=== PATIENT | female | born 1995 | race Caucasian/White ===

== ENCOUNTER → 2017-11-11 | Outpatient (CLI) | payer BC ==
[~2017-11-11] MED LIST: ALBU90OI INH; AZIT250 PO; CETI5 PO; DIPH25 PO; HYDACE5 PO; IBUP800 PO; NAPR500 PO; PRED20 PO; RANI150EL PO
== END | disposition home or self-care (01) ==
LOC: LAB SHORT 17:32 → LAB 17:32
DX: N39.0 Urinary tract infection, site not specified (principal)
CPT/HCPCS: 87086

== ENCOUNTER 2018-12-31 09:39 | Emergency (ER) | payer BC, SELFPAY ==
[~2018-12-31] VITALS: Ht 167.6 cm; Wt 68.0 kg
[2018-12-31] MEDS ORDERED: Atarax10 MG PO (09:56)
[2018-12-31] MEDS ORDERED: ALPR.5 PO (09:57)
[2018-12-31 10:54] LABS: Hematocrit 45.9 % (33.0-51.0); Hemoglobin 15.7 g/dL (11.5-16.0); Mean Corpuscular HGB 30.9 pg (26.0-34.0); Mean Corpuscular HGB Conc 34.2 g/dL (31.5-36.5); Mean Corpuscular Volume 90 fL (80-100); Platelet Count 225 K/mm3 (150-400); RDW Coefficient Variation 12.2 % (11.7-14.2); Red Blood Cell Count 5.08 M/mm3 (3.80-5.20); White Blood Cell Count 4.36 K/mm3 (4.00-11.30)
[2018-12-31 11:17] LABS: Alanine Aminotransfer (ALT/SGP 35 U/L (12-78); Albumin, Blood 4.7 g/dL (3.4-5.0); Albumin/Globulin Ratio 1.3 (0.8-1.8); Alk Phos 68 U/L (50-136); Anion Gap 7 mmol/L (6-16); Aspartate Aminotrans (AST/SGOT 15 U/L (12-37); Bilirubin, Total 0.5 mg/dL (0.1-1.0); Blood Urea Nitrogen 14 mg/dL (8-24); Bun/Creatinine Ratio 21.4 (12.0-20.0); CO2, Blood 24 mmol/L (21-32); Calcium, Blood 9.1 mg/dL (8.5-10.1); Chloride, Blood 110 mmol/L (98-108); Creatinine, Blood 0.66 mg/dL (0.40-1.00); Globulin, Blood 3.6 g/dL (2.2-4.0); Glomerular Filtration Rate >60 (60-); Glucose, Blood 89 mg/dL (70-99); Potassium, Blood 4.2 mmol/L (3.5-5.5); Sodium, Blood 141 mmol/L (136-145); Total Protein, Blood 8.3 g/dL (6.4-8.2); Troponin I <0.015 ng/mL (0.000-0.040)
[2018-12-31 11:20] LABS: BAND PERCENT MAN 1 % (0-8); BASOPHILS PERCENT MAN 0 % (0-2); EOSINOPHILS ABSOLUTE MAN 0.08 K/mm3 (0.00-0.68); EOSINOPHILS PERCENT MAN 2 % (0-6); LYMPHOCYTES ABSOLUTE MAN 1.35 K/mm3 (0.84-5.20); LYMPHOCYTES PERCENT MAN 31 % (21-46); MONOCYTES ABSOLUTE MAN 0.26 K/mm3 (0.16-1.47); MONOCYTES PERCENT MAN 6 % (4-13); NEUTROPHILS ABSOLUTE MAN 2.65 K/mm3 (1.96-9.15); SEG NEUTROPHILS PERCENT MAN 60 % (41-73); TOTAL CELLS COUNTED 100
== END 2018-12-31 11:58 | disposition home or self-care (01) ==
LOC: ER 09:39
PROVIDERS: Emergency Medicine
DX: R00.2 Palpitations (principal); Z79.899 Other long term (current) drug therapy
CPT/HCPCS: 36415; 71046; 80053; 84443; 84484; 85025; 93005; 93010; 99285-25

== ENCOUNTER 2019-06-26 13:39 | Emergency (ER) | payer BC, SELFPAY ==
[~2019-06-26] VITALS: Ht 167.6 cm; Wt 68.0 kg
[~2019-06-26 13:39] MED LIST changes: +ALPR.5 PO; +Atarax10 MG PO
[2019-06-26 14:56] LABS: Influenza A Negative (NEGATIVE); Influenza B Positive (NEGATIVE)
[2019-06-26] MEDS ORDERED: MEDROXYPRO IM (15:26)
[2019-06-26] MEDS ORDERED: Sudogest60 MG PO ×2 (15:37→15:39)
[2019-06-26] MEDS ORDERED: Tamiflu75 MG PO ×2 (15:37→15:39)
== END 2019-06-26 15:45 | disposition home or self-care (01) ==
LOC: ER 13:39
PROVIDERS: Physician Assistant
DX: J10.1 Influenza due to other identified influenza virus with other respiratory manifestations (principal)
CPT/HCPCS: 87804; 99283

== ENCOUNTER 2019-10-24 08:43 | Emergency (ER) | payer OTHER ==
[~2019-10-24] VITALS: Ht 167.6 cm; Wt 65.8 kg
[~2019-10-24 08:43] MED LIST changes: +MEDROXYPRO IM; +Sudogest60 MG PO; +Tamiflu75 MG PO
[2019-10-24 10:01] LABS: BASOPHILS ABSOLUTE AUTO 0.02 K/mm3 (0.00-0.23); BASOPHILS PERCENT AUTO 1 % (0-2); EOSINOPHILS ABSOLUTE AUTO 0.12 K/mm3 (0.00-0.68); EOSINOPHILS PERCENT AUTO 3 % (0-6); Hematocrit 43.5 % (33.0-51.0); Hemoglobin 14.5 g/dL (11.5-16.0); IMMATURE GRAN ABSOLUTE AUTO 0.01 K/mm3 (0.00-0.10); IMMATURE GRAN PERCENT AUTO 0 % (0-1); LYMPHOCYTES ABSOLUTE AUTO 1.08 K/mm3 (0.84-5.20); LYMPHOCYTES PERCENT AUTO 27 % (21-46); MONOCYTES ABSOLUTE AUTO 0.34 K/mm3 (0.16-1.47); MONOCYTES PERCENT AUTO 9 % (4-13); Mean Corpuscular HGB Conc 33.3 g/dL (31.5-36.5); Mean Corpuscular Volume 93 fL (80-100); NEUTROPHILS ABSOLUTE AUTO 2.38 K/mm3 (1.96-9.15); NEUTROPHILS PERCENT AUTO 60 % (41-73); Platelet Count 216 K/mm3 (150-400); RDW Coefficient Variation 12.2 % (11.7-14.2); RDW Standard Deviation 42.3 fL (35.1-46.3); Red Blood Cell Count 4.67 M/mm3 (3.80-5.20); White Blood Cell Count 3.95 K/mm3 (4.00-11.30)
[2019-10-24 10:22] LABS: Anion Gap 5 mmol/L (6-16); Blood Urea Nitrogen 14 mg/dL (8-24); Bun/Creatinine Ratio 19.4 (12.0-20.0); CO2, Blood 26 mmol/L (21-32); Calcium, Blood 8.7 mg/dL (8.5-10.1); Chloride, Blood 111 mmol/L (98-108); Creatinine, Blood 0.72 mg/dL (0.40-1.00); Glomerular Filtration Rate >60 (60-); Glucose, Blood 99 mg/dL (70-99); Magnesium, Blood 2.2 mg/dL (1.6-2.4); Potassium, Blood 4.5 mmol/L (3.5-5.5); Sodium, Blood 142 mmol/L (136-145)
== END 2019-10-24 11:13 | disposition home or self-care (01) ==
LOC: ER 08:43
PROVIDERS: Physician Assistant
DX: R00.2 Palpitations (principal); Q21.1 Atrial septal defect
CPT/HCPCS: 36415; 80048; 83735; 85025; 93005; 93010; 99285-25

== ENCOUNTER 2020-09-01 13:14 | Emergency (ER) | payer OTHER ==
[~2020-09-01] VITALS: Ht 167.6 cm; Wt 68.0 kg
[2020-09-01 14:26] LABS: Source, Urine Clean Catch
[2020-09-01 14:36] LABS: Appearance, Urine Hazy (Clear); Bilirubin, Urine Neg (Neg); Blood, Urine 1+ (Neg); Color, Urine Yellow (P-Yellow); Glucose Qualitative, Urine Neg (Neg); Ketones, Urine Neg (Neg); Leukocyte Esterase, Urine 3+ (Neg); Nitrite, Urine Neg (Neg); Protein, Urine Neg (Neg); Specific Gravity, Urine 1.015 (1.003-1.022); Urobilinogen, Urine NORM (Normal); pH, Urine 6.5 (5.0-8.0)
[2020-09-01 14:48] LABS: Amorphous Light (0-Heavy); Bacteria Rare /hpf; Red Blood Cells, Urine 0-2 /hpf (0-2); Squamous Epithelial Cells Few /hpf (Few)
[2020-09-01] MEDS ORDERED: Robaxin-750750 MG PO (15:13)
[2020-09-01] MEDS ORDERED: IBUP800 PO (15:13)
== END 2020-09-01 15:22 | disposition home or self-care (01) ==
LOC: ER 13:14
PROVIDERS: Physician Assistant
DX: M54.5 Low back pain (principal)
CPT/HCPCS: 81001; 87086; 99283

== ENCOUNTER 2023-06-13 00:34 | Emergency (ER) | payer OTHER ==
[~2023-06-13] VITALS: Ht 167.6 cm; Wt 86.2 kg
[~2023-06-13 00:34] MED LIST changes: +Robaxin-750750 MG PO
[2023-06-13 01:00] VITALS: BP 144/78
== END 2023-06-13 02:43 | disposition home or self-care (01) ==
LOC: ER 00:34
DX: H60.01 Abscess of right external ear (principal); Z91.018 Allergy to other foods
CPT/HCPCS: 69020; 99282-25

== ENCOUNTER 2024-09-25 13:40 | Emergency (ER) | payer OTHER ==
[~2024-09-25] VITALS: Ht 160 cm; Wt 104.3 kg
[2024-09-25 14:03] VITALS: BP 129/78
[2024-09-25 14:43] LABS: BASOPHILS ABSOLUTE AUTO 0.03 K/mm3 (0.00-0.23); BASOPHILS PERCENT AUTO 1 % (0-2); EOSINOPHILS ABSOLUTE AUTO 0.09 K/mm3 (0.00-0.68); EOSINOPHILS PERCENT AUTO 2 % (0-6); IMMATURE GRAN ABSOLUTE AUTO 0.02 K/mm3 (0.00-0.10); IMMATURE GRAN PERCENT AUTO 0 % (0-1); LYMPHOCYTES ABSOLUTE AUTO 1.21 K/mm3 (0.84-5.20); LYMPHOCYTES PERCENT AUTO 21 % (21-46); MONOCYTES ABSOLUTE AUTO 0.32 K/mm3 (0.16-1.47); MONOCYTES PERCENT AUTO 6 % (4-13); Mean Corpuscular HGB 30.5 pg (26.0-34.0); Mean Corpuscular Volume 87 fL (80-100); Mean Platelet Volume 8.8 fL (9.1-12.4); NEUTROPHILS ABSOLUTE AUTO 4.09 K/mm3 (1.96-9.15); NEUTROPHILS PERCENT AUTO 71 % (41-73); Platelet Count 273 K/mm3 (150-400); RDW Coefficient Variation 12.2 % (11.7-14.2); RDW Standard Deviation 38.8 fL (35.1-46.3); Red Blood Cell Count 4.59 M/mm3 (3.80-5.20); White Blood Cell Count 5.76 K/mm3 (4.00-11.30)
[2024-09-25 15:03] LABS: Albumin, Blood 3.8 g/dL (3.4-5.0); Bilirubin, Total 0.5 mg/dL (0.1-1.0); Bun/Creatinine Ratio 31.2 (12.0-20.0); Calcium, Blood 8.6 mg/dL (8.5-10.1); Creatinine, Blood 0.51 mg/dL (0.40-1.00); Globulin, Blood 3.8 g/dL (2.2-4.0); Potassium, Blood 3.9 mmol/L (3.5-5.5); Total Protein, Blood 7.6 g/dL (6.4-8.2)
== END 2024-09-25 15:56 | disposition home or self-care (01) ==
LOC: ER 13:40
PROVIDERS: Student in an Organized Health Care Education/Training Program
DX: R07.2 Precordial pain (principal); J06.9 Acute upper respiratory infection, unspecified; Z91.018 Allergy to other foods
CPT/HCPCS: 36415; 71046; 80053; 84484; 85025; 93005; 93010; 99285-25